=== PATIENT | female | born 1985 | race African-American/Black ===

== ENCOUNTER 2019-03-09 22:58 | Emergency (ER) | payer SELFPAY ==
[2019-03-09 23:41] LABS: Basophils # (Auto) 0.1 K/mm3 (0.0-0.1); Basophils % (Auto) 1.1 % (0.0-1.8); Eosinophils # (Auto) 0.6 K/mm3 (0.0-0.4); Eosinophils % (Auto) 7.9 % (0.0-4.3); Hematocrit 39.2 % (30.3-42.9); Hemoglobin 13.5 gm/dl (10.1-14.3); Lymphocytes # (Auto) 1.6 K/mm3 (1.2-5.4); Mean Corpuscular HGB Conc 34 % (30-34); Mean Corpuscular Volume 83 fl (79-97); Monocytes # (Auto) 0.3 K/mm3 (0.0-0.8); Monocytes % (Auto) 4.7 % (0.0-7.3); Platelet Count 175 K/mm3 (140-440); Red Blood Count 4.71 M/mm3 (3.65-5.03); Red Cell Distribution Width 13.7 % (13.2-15.2)
[2019-03-10 00:03] LABS: Alanine Aminotransferase 27 units/L (7-56); Albumin 4.4 g/dL (3.9-5); BUN/Creatinine Ratio 14; Blood Urea Nitrogen 7 mg/dL (7-17); Calcium 10.3 mg/dL (8.4-10.2); Hemolysis Index 14
[2019-03-10 02:08] LABS: Bacteria,Urine 1+ /HPF (Negative); Bilirubin,Urine NEG (Negative); Blood,Urine NEG (Negative); Color,Urine Yellow (Yellow); Mucus,Urine 1+ /HPF; Protein,Urine <15 mg/dL mg/dL (Negative); Urobilinogen,Urine < 2.0 mg/dL (<2.0)
[2019-03-10] MEDS ORDERED: ACETAMINOPHEN 325 MG TAB PO ONE (02:12)
[2019-03-10] MEDS ORDERED: ONDANSETRON 4 MG ODT TAB PO ONE (02:12)
--- NOTE | 2019-03-10 02:19 | Emergency Department Report ---
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 no fever or chills, pt also denies dysuria , frequency, urgency, or hematuria, symptoms are exacerbated by am awakening, and general resolve by midday , with occassional occurrence at night during HS. Pt is G5, P4, A0 including this . MD Complaint: abdominal pain Onset/Timin -: days(s) Location: LLQ, RLQ Radiation: LLQ, RLQ Severity: moderate Severity scale (0 -10): 3 Quality: cramping Consistency: intermittent Improves With: nothing Worsens With: nothing Associated Symptoms: nausea, vomiting. denies: dysuria, melena - Related Data LMP (females 10-50): 3 months Previous Rx's Medication Instructions Recorded Last Taken Type Acetaminophen [Acetaminophen TAB] 650 mg PO Q6HR PRN #30 tablet 03/10/19 Unknown Rx Ondansetron [Zofran Odt] 4 mg PO Q8HR PRN #21 tab.rapdis 03/10/19 Unknown Rx cephALEXin [Keflex] 500 mg PO BID 7 Days #14 cap 03/10/19 Unknown Rx Allergies Allergy/AdvReac Type Severity Reaction Status Date / Time No Known Allergies Allergy Unverified 03/09/19 23:14 ED Review of Systems Constitutional: denies: chills, fever Eyes: denies: eye pain, eye discharge, vision change ENT: denies: ear pain, throat pain Respiratory: denies: cough, shortness of breath, wheezing Cardiovascular: denies: chest pain, palpitations Endocrine: no symptoms reported Gastrointestinal: abdominal pain, nausea, vomiting. denies: diarrhea, constipation, melena Genitourinary: denies: urgency, dysuria, frequency, hematuria, discharge, dyspareunia Musculoskeletal: back pain Skin: denies: rash, lesions Neurological: denies: headache, weakness, paresthesias Psychiatric: denies: anxiety, depression Hematological/Lymphatic: denies: easy bleeding, easy bruising ED Past Medical Hx - Past Medical History Previous Medical History?: No - Surgical History Past Surgical History?: No - Social History Smoking Status: Never Smoker Substance Use Type: None - Medications Home Medications: Home Medications Medication Instructions Recorded Confirmed Last Taken Type Acetaminophen [Acetaminophen TAB] 650 mg PO Q6HR PRN #30 tablet 03/10/19 Unknown Rx Ondansetron [Zofran Odt] 4 mg PO Q8HR PRN #21 tab.rapdis 03/10/19 Unknown Rx cephALEXin [Keflex] 500 mg PO BID 7 Days #14 cap 03/10/19 Unknown Rx ED Physical Exam - General Limitations: Language Barrier General appearance: alert, in no apparent distress - Head Head exam: Present: atraumatic, normocephalic - Eye Eye exam: Present: normal appearance, PERRL, EOMI - ENT ENT exam: Present: mucous membranes moist - Neck Neck exam: Present: normal inspection - Respiratory Respiratory exam: Present: normal lung sounds bilaterally. Absent: respiratory distress, wheezes, stridor, chest wall tenderness - Cardiovascular Cardiovascular Exam: Present: regular rate, normal rhythm, normal heart sounds. Absent: systolic murmur, diastolic murmur, rubs, gallop - GI/Abdominal GI/Abdominal exam: Present: soft, tenderness (mild tenderness to bilat lower abd ), normal bowel sounds. Absent: distended, guarding, rebound, rigid, bruit, hernia - Rectal Rectal exam: Present: deferred - External exam: Present: other (pt defers ) - Extremities Exam Extremities exam: Present: normal inspection, full ROM. Absent: tenderness, pedal edema, calf tenderness - Back Exam Back exam: Present: normal inspection, full ROM. Absent: tenderness, CVA tenderness (R), CVA tenderness (L), vertebral tenderness - Neurological Exam Neurological exam: Present: alert, oriented X3 - Psychiatric Psychiatric exam: Present: normal affect, normal mood - Skin Skin exam: Present: warm, dry, intact, normal color. Absent: rash ED Medical Decision Making - Lab Data Result diagrams: 03/09/19 23:28 03/09/19 23:28 Labs 03/09/19 03/09/19 03/09/19 23:28 23:28 23:28 WBC 7.4 RBC 4.71 Hgb 13.5 Hct 39.2 MCV 83 MCH 29 MCHC 34 RDW 13.7 Plt Count 175 Lymph % (Auto) 22.0 [place] % (Auto) 4.7 Eos % (Auto) 7.9 H Baso % (Auto) 1.1 Lymph # 1.6 [place] # 0.3 Eos # 0.6 H Baso # 0.1 Seg Neutrophils % 64.3 Seg Neutrophils # 4.7 Sodium 134 L Potassium 3.8 Chloride 100.9 Carbon Dioxide 22 Anion Gap 15 BUN 7 Creatinine 0.5 L Estimated GFR > 60 BUN/Creatinine Ratio 14 Glucose 98 Calcium 10.3 H Total Bilirubin 0.30 AST 22 ALT 27 Alkaline Phosphatase 73 Total Protein 8.0 Albumin 4.4 Albumin/Globulin Ratio 1.2 HCG, Quant 11806 H Urine Color Urine Turbidity Urine pH Ur Specific [place] Urine Protein Urine Glucose (UA) Urine Ketones Urine Blood Urine Nitrite Urine Bilirubin Urine Urobilinogen Ur Leukocyte Esterase Urine WBC (Auto) Urine RBC (Auto) U Epithel Cells (Auto) Urine Bacteria (Auto) Urine Mucus 03/10/19 01:39 WBC RBC Hgb Hct MCV MCH MCHC RDW Plt Count Lymph % (Auto) [place] % (Auto) Eos % (Auto) Baso % (Auto) Lymph # [place] # Eos # Baso # Seg Neutrophils % Seg Neutrophils # Sodium Potassium Chloride Carbon Dioxide Anion Gap BUN Creatinine Estimated GFR BUN/Creatinine Ratio Glucose Calcium Total Bilirubin AST ALT Alkaline Phosphatase Total Protein Albumin Albumin/Globulin Ratio HCG, Quant Urine Color Yellow Urine Turbidity Cloudy Urine pH 5.0 Ur Specific [place] 1.023 Urine Protein <15 mg/dl Urine Glucose (UA) Neg Urine Ketones Tr Urine Blood Neg Urine Nitrite Neg Urine Bilirubin Neg Urine Urobilinogen < 2.0 Ur Leukocyte Esterase Sm Urine WBC (Auto) 5.0 Urine RBC (Auto) 3.0 U Epithel Cells (Auto) 18.0 H Urine Bacteria (Auto) 1+ Urine Mucus 1+ - Radiology Data Radiology results: report reviewed, image reviewed Single IUP 12 weeks, 3 days , FHR: 162 bpm, small inferior subchorionic hemorrhage, , small right ovarian cyst. - Medical Decision Making there is no vaginal bleeding or discharge, pt declines vaginal exam, deferrs to OBGYN. US OB: Single IUP 12 weeks, 3 days , FHR: 162 bpm, small inferior subchorionic hemorrhage, , small right ovarian cyst., ua: Trace leuk, wbc, rbc, bacteria some epithelial cells noted however given will treat with keflex, zofran, tyelnol, pt is currently a/o x 3 , tolerating po without n/v , pt will follow up with OBGYN in 1-2 days, Plevic Rest. Pt verbalized agreement and understanding of same. pt will be dc'd to home in stable condition at this time. ED Disposition Clinical Impression: Threatened miscarriage Abdominal pain during Qualifiers: Trimester: second trimester Qualified Code(s): O26.892 - Other specified related conditions, second trimester Disposition: DC-01 TO HOME OR SELFCARE Is pt being admited?: No Does the pt Need Aspirin: No Condition: Stable Instructions: Threatened Miscarriage (ED), (ED), Abdominal Pain (ED), Abdominal Pain in (ED) Additional Instructions: Pelvic rest ( no sex) until cleared by OBGYN Doctor. Prescriptions: Acetaminophen [Acetaminophen TAB] 650 mg PO Q6HR PRN #30 tablet PRN Reason: Pain cephALEXin [Keflex] 500 mg PO BID 7 Days #14 cap Ondansetron [Zofran Odt] 4 mg PO Q8HR PRN #21 tab.rapdis PRN Reason: Nausea And Vomiting Referrals: MARIANELA RAVI MD [Staff Physician] - 3-5 Days Forms: Work/School Release Form(ED) Print Language: KOSOVAN <CECELIA THOMAS - Last Filed: 03/10/19 05:36> ED Review of Systems ROS: Stated complaint: BACK AND ABD PAIN 12 WKS PREG Other details as noted in HPI ED Course Vital Signs 03/09/19 03/10/19 23:08 04:22 Temperature 97.7 F 97.1 F L Pulse Rate 81 79 Respiratory 18 16 Rate Blood Pressure 97/71 Blood Pressure 116/71 [Left] O2 Sat by Pulse 97 99 Oximetry ED Medical Decision Making - Lab Data Result diagrams: 03/09/19 23:28 03/09/19 23:28 Critical care attestation.: If time is entered above; I have spent that time in minutes in the direct care of this critically ill patient, excluding procedure time. ED Disposition Is pt being admited?: No Does the pt Need Aspirin: No
--- NOTE | 2019-03-10 03:06 | Ultrasound Report ---
ULTRASOUND OBSTETRIC INDICATION / CLINICAL INFORMATION: abd preg. Clinical Gestational Age (GA): 12 weeks 3 days TECHNIQUE: Transabdominal. COMPARISON: None available. FINDINGS: GESTATIONAL SAC: Well-defined oval shape and intrauterine in location. EMBRYO/FETUS: No significant abnormality. - [place]-Rump Length = 5.9 cm = 12 weeks, 3 day(s). - Heart Rate, beats per minute (if present) = 162 ADNEXA: No significant abnormality. Both ovaries are well visualized and grossly unremarkable. 1.3 cm corpus luteal cyst noted on the right. FREE FLUID: None. ADDITIONAL FINDINGS: Small hypoechoic fluid collection is seen along the inferior aspect of the gesta tional sac most likely representing small incidental subchorionic hemorrhage. Measurement is approxim ately 2.9 x 0.7 cm. IMPRESSION: 1. Single, living intrauterine with estimated sonographic age of 12 weeks, 3 day(s). 2. Small inferior subchorionic hemorrhage. Signer Name: Diandra Rich MD Signed: 03/10/2019 3:02 AM Workstation Name: [email or web address]
[2019-03-10 04:22] VITALS: BP 116/71
== END 2019-03-10 04:23 | disposition home or self-care (01) ==
LOC: ED 22:58
DX: O20.0 Threatened abortion (principal); Z79.899 Other long term (current) drug therapy; Z3A.12 12 weeks gestation of pregnancy
CPT/HCPCS: 36415; 76801; 80053; 81001; 84702; 85025; 86900; 86901; Q0162

== ENCOUNTER 2019-07-02 19:16 | Outpatient (CLI) | payer OTHER ==
[2019-07-02 20:06] LABS: Bacteria,Urine 1+ /HPF (Negative); Bilirubin,Urine NEG (Negative); Blood,Urine NEG (Negative); Color,Urine Yellow (Yellow); Mucus,Urine FEW /HPF; Protein,Urine <15 mg/dL mg/dL (Negative)
== END 2019-07-02 20:40 | disposition home or self-care (01) ==
LOC: TRG 19:16
PROVIDERS: ATTEND Obstetrics & Gynecology
DX: O26.892 Other specified pregnancy related conditions, second trimester (principal); R10.2 Pelvic and perineal pain; Z3A.28 28 weeks gestation of pregnancy
CPT/HCPCS: 81001

== ENCOUNTER 2019-09-22 12:08 | Inpatient (IN) | payer MEDICAID ==
[2019-09-22] MEDS: LACTATED RINGERS 1,000 ML IV SCH (13:38)
[2019-09-22 14:10] LABS: Basophils % (Auto) 0.7 % (0.0-1.8); Eosinophils # (Auto) 0.5 K/mm3 (0.0-0.4); Eosinophils % (Auto) 7.4 % (0.0-4.3); Hematocrit 34.9 % (30.3-42.9); Hemoglobin 11.8 gm/dl (10.1-14.3); Lymphocytes # (Auto) 1.6 K/mm3 (1.2-5.4); Lymphocytes % (Auto) 23.1 % (13.4-35.0); Mean Corpuscular HGB Conc 34 % (30-34); Mean Corpuscular Volume 81 fl (79-97); Monocytes # (Auto) 0.4 K/mm3 (0.0-0.8); Monocytes % (Auto) 5.5 % (0.0-7.3); Platelet Count 163 K/mm3 (140-440); Red Blood Count 4.34 M/mm3 (3.65-5.03); Red Cell Distribution Width 15.8 % (13.2-15.2)
--- NOTE | 2019-09-22 16:17 | Ultrasound Report ---
ULTRASOUND OBSTETRIC INDICATION / CLINICAL INFORMATION: Absence of movement. Clinical Gestational Age (GA): 40 weeks 4 days TECHNIQUE: Transabdominal. COMPARISON: Pelvic ultrasound 03/10/2019 FINDINGS: There is a single intrauterine . BREATHING MOVEMENT = 2 GROSS BODY MOVEMENT = 2 TONE = 2 QUALITATIVE AMNIOTIC FLUID VOLUME = 2 TOTAL BIOPHYSICAL SCORE = 8/8 heart rate 140 bpm. SUKHDEV 6.4 cm, borderline low. Cervical length 5.5 cm. IMPRESSION: 1. Single, living intrauterine . 2. Borderline low amniotic fluid index. Signer Name: Jus Perkins MD Signed: 09/22/2019 4:13 PM Workstation Name: [id number]
[2019-09-22] MEDS ORDERED: AMPICILLIN/NS 2 GM/100 ML 2 GM/100 ML BAG IV ONE (16:29)
[2019-09-22] MEDS ORDERED: DINOPROSTONE 10 MG VAG SUPP VG ONE (16:29)
[2019-09-22] MEDS ORDERED: MINERAL OIL 30 ML ORAL LIQD PO PRN (16:29)
[2019-09-22] MEDS ORDERED: TERBUTALINE 1 MG/1 ML INJ IVP PRN (16:29)
[2019-09-22] MEDS ORDERED: TERBUTALINE 1 MG/1 ML INJ SUB-Q PRN (16:29)
[2019-09-22] MEDS ORDERED: fentaNYL 100 MCG/2 ML INJ IV PRN (16:29)
[2019-09-22] MEDS ORDERED: LIDOCAINE (2%) 20 MG/1 ML VIAL 20 ML MDV INFILTRATI ONE (16:29)
[2019-09-22] MEDS ORDERED: BUTORPHANOL 2 MG/1 ML INJ IV PRN ×2 (16:29)
[2019-09-22] MEDS ORDERED: ePHEDrine SULFATE 50 MG/1 ML INJ IV PRN (16:29)
[2019-09-22] MEDS ORDERED: OXYTOCIN 20 UNIT/1000ML DRIP 20 UNITS/1,000 ML BAG IV SCH (17:00)
[2019-09-22] MEDS ORDERED: LACTATED RINGERS 1,000 ML IV SCH (17:00)
[2019-09-22 17:29] LABS: Bacteria,Urine 2+ /HPF (Negative); Bilirubin,Urine NEG (Negative); Blood,Urine NEG (Negative); Color,Urine Yellow (Yellow); Mucus,Urine FEW /HPF; Protein,Urine <15 mg/dL mg/dL (Negative); Urobilinogen,Urine < 2.0 mg/dL (<2.0)
[2019-09-22] MEDS ORDERED: OXYTOCIN DRIP 30 UNITS/500 ML BAG IV SCH (19:00)
[2019-09-23] MEDS: LACTATED RINGERS 1,000 ML IV SCH ×2 (03:34→16:23)
[2019-09-23] MEDS: AMPICILLIN/NS 1 GM/50 ML 1 GM/50 ML BAG IV SCH ×4 (03:34→18:44)
--- NOTE | 2019-09-23 08:31 | History and Physical Report ---
History of Present Illness Date of examination: 09/23/19 Date of admission: 09/22/19 16:44 Chief complaint: oligohydramnios History of present illness: This is a 33 yo at 41 weeks here for decreased movement and noted during eval to have oligo. She had no care. Past History Past Medical History: no pertinent history Past Surgical History: no surgical history Social history: no significant social history, . denies: smoking, alcohol abuse, prescription drug abuse - Obstetrical History Expected Date of Delivery: 09/17/19 Actual Gestation: 40 Week(s) 6 Day(s) : 5 Para: 4 Hx # Term Pregnancies: 4 Number of Pregnancies: 0 Spontaneous Abortions: 0 Induced : 0 Number of Living Children: 4 Medications and Allergies Allergies Allergy/AdvReac Type Severity Reaction Status Date / Time No Known Allergies Allergy Unverified 03/09/19 23:14 Home Medications Medication Instructions Recorded Confirmed Last Taken Type Vit-Fe Fumar-FA [ 1 tab PO QDAY 09/22/19 09/22/19 09/22/19 08:00 History Vitamin] Active Meds: Active Medications Butorphanol Tartrate (Stadol) 1 mg IV Q2H PRN PRN Reason: Pain, Moderate(4-6) LABOR PAIN Butorphanol Tartrate (Stadol) 2 mg IV Q2H PRN PRN Reason: Pain , Severe (7-10) Last Admin: 09/23/19 03:30 Dose: 2 mg Documented by: Ephedrine Sulfate (Ephedrine Sulfate) 10 mg IV Q2M PRN PRN Reason: Hypotension Fentanyl (Sublimaze) 100 mcg IV Q2H PRN PRN Reason: Pain,Severe (7-10) LABOR PAIN Lactated Ringer's (Lactated Ringers) 1,000 mls @ 150 mls/hr IV DIRECT ADONIS Last Admin: 09/23/19 03:34 Dose: 150 mls/hr Documented by: Ampicillin Sodium (Ampicillin/Ns 1 Gm/50 Ml) 1 gm in 50 mls @ 100 mls/hr IV Q4H R ADONIS; Protocol Last Admin: 09/23/19 03:34 Dose: 100 mls/hr Documented by: Lactated Ringer's (Lactated Ringers) 1,000 mls @ 125 mls/hr IV DIRECT ADONIS Last Admin: 09/22/19 18:29 Dose: 125 mls/hr Documented by: Oxytocin/Sodium Chloride (Pitocin/Ns 20 Unit/1000ml Drip) 20 units in 1,000 mls @ 125 mls/hr IV DIRECT ADONIS Oxytocin/Sodium Chloride (Pitocin/Ns 30 Unit/500ml) 30 units in 500 mls @ 2 mls/hr IV TITR ADONIS; Protocol Last Titration: 09/23/19 06:45 Dose: 4 mls/hr Documented by: Mineral Oil (Mineral Oil) 30 ml PO QHS PRN PRN Reason: Constipation Terbutaline Sulfate (Brethine) 0.25 mg SUB-Q ONCE PRN PRN Reason: Hyperstimulation/Hypertonicity Terbutaline Sulfate (Brethine) 0.25 mg IVP ONCE PRN PRN Reason: Hyperstimulation/Hypertonicity Review of Systems All systems: negative - Vital Signs Vital signs: Vital Signs Pulse Pulse Ox 83 97 09/22/19 12:26 09/22/19 12:26 Temp Pulse Resp BP Pulse Ox 98.6 F 66 16 132/67 100 09/23/19 03:15 09/23/19 08:19 09/23/19 03:30 09/23/19 07:24 09/23/19 08:19 - Physical Exam Breasts: Positive: normal Cardiovascular: Regular rate, Normal S1 Lungs: Positive: Clear to auscultation, Normal air movement Abdomen: Positive: normal appearance, soft, normal bowel sounds. Negative: distention, tenderness, guarding Genitourinary (Female): Positive: normal external genitalia, normal perenium Vagina: Positive: normal moisture Uterus: Positive: normal size Anus/Rectum: Positive: normal perianal skin Deep Tendon Reflex Grade: Normal +2 - Obstetrical FHR: category 1 Cervical Dilatation: 3 Cervical Effacement Percentage: 60 station: -2 Uterine Contraction Pattern: Regular Uterine Tone Measurement Phase: Contraction Uterine Contraction Intensity: Moderate Results Result Diagrams: 09/22/19 13:50 Abnormal lab results 09/22/19 Range/Units 13:50 MCH 27 L (28-32) pg RDW 15.8 H (13.2-15.2) % Eos % (Auto) 7.4 H (0.0-4.3) % Eos # 0.5 H (0.0-0.4) K/mm3 All other labs normal. Assessment and Plan A/P IUP 40+6 weeks Oligo no care GBS unknown s/p pitocin will change to cervidil as cervix non favorable and will ripen close monitor of and maternal
[2019-09-23] MEDS ORDERED: DINOPROSTONE 10 MG VAG SUPP VG ONE ×2 (10:00→21:46)
[2019-09-24] MEDS ORDERED: ceFAZolin/Water 2 GM/20 ML 2 GM/20 ML SYRINGE IV ONE (01:01)
[2019-09-24] MEDS ORDERED: BICITRA ORAL LIQD 30ML ONE (01:01)
[2019-09-24] MEDS ORDERED: FAMOTIDINE 20 MG/2 ML INJ IV ONE ×2 (01:01→01:34)
[2019-09-24] MEDS ORDERED: METOCLOPRAMIDE 10 MG/2 ML INJ ONE (01:01)
[2019-09-24] MEDS: LACTATED RINGERS 1,000 ML IV SCH (01:30)
--- NOTE | 2019-09-24 01:30 | Event Note ---
Date: 09/24/19 I was contacted by nurse conscerning cat 2 strip with decels late in character. I discussed with [place]i interprter that this baby is recommended to deliver by csec secondary to nrfht, failed IOL. Patient was given r/b/a which include but not limited to bleeding infection, damage to pelvic and non pelvic organs risk of hysterectomy and .
[2019-09-24] MEDS ORDERED: METOCLOPRAMIDE 10 MG/2 ML INJ IV ONE (01:34)
[2019-09-24] MEDS ORDERED: BICITRA ORAL LIQD 30ML PO ONE (01:34)
--- NOTE | 2019-09-24 01:36 | Anesthesia Day of Surgery ---
Anesthesia Day of Surgery - Day of Surgery Patient Examined: Yes Patient H&P Reviewed: Yes Patient is NPO: Yes Beta Blockers: No Cardiac Clearance: No Pulmonary Clearance: No Hamilton's Test: N/A
--- NOTE | 2019-09-24 01:37 | Anesthesia Consultation ---
Anesthesia Consult and Med Hx Date of service: 09/24/19 - Airway Anesthetic Teeth Evaluation: Poor ROM Head & Neck: Adequate Mental/Hyoid Distance: Adequate Mallampati Class: Class III Intubation Access Assessment: Probably Good - Pulmonary Exam CTA: Yes - Cardiac Exam Cardiac Exam: RRR - Pre-Operative Health Status ASA Pre-Surgery Classification: ASA3 Proposed Anesthetic Plan: Spinal - Pulmonary Hx Smoking: No Hx Asthma: No Hx Respiratory Symptoms: No SOB: No COPD: No Home Oxygen Therapy: No Hx Pneumonia: No Hx Sleep Apnea: No - Cardiovascular System Hx Hypertension: No Hx Coronary Artery Disease: No Hx Heart Attack/AMI: No Hx Angina: No Hx Percutaneous Transluminal Coronary Angioplasty (PTCA): No Hx Cardia Arrhythmia: No Hx Pacemaker: No Hx Internal Defibrillator: No Hx Valvular Heart Disease: No Hx Heart Murmur: No Hx Peripheral Vascular Disease: No - Central Nervous System Hx Neuromuscular Disorder: No Hx Seizures: No CVA: No Hx Back Pain: Yes Hx Psychiatric Problems: No - Gastrointestinal Hx Ulcer: No Hx Gastroesophageal Reflux Disease: Yes - Endocrine Hx Renal Disease: No Hx End Stage Renal Disease: No Hx Cirrhosis: No Hx Liver Disease: No Hx Insulin Dependent Diabetes: No Hx Non-Insulin Dependent Diabetes: No Hx Thyroid Disease: No Hx Hypothyroidism: No Hx Hyperthyroidism: No - Hematic Hx Anemia: No Hx Sickle Cell Disease: No - Other Systems Hx Alcohol Use: No Hx Substance Use: No Hx Cancer: No Hx Obesity: Yes
[2019-09-24] MEDS ORDERED: WATER FOR IRRIG STERILE 1,500 ML BOTTLE IR ONE (01:58)
[2019-09-24] MEDS ORDERED: ONDANSETRON 4 MG/2 ML INJ ONE (01:58)
[2019-09-24] MEDS ORDERED: SODIUM CHLORIDE 0.9% IRR 1,500 ML BOTTLE IR ONE (01:58)
[2019-09-24] MEDS ORDERED: DEXMEDETOMIDINE 200 MCG/2 ML VIAL IV ONE (01:58)
[2019-09-24] MEDS ORDERED: OXYTOCIN 20 UNIT/1000ML DRIP 20 UNITS/1,000 ML BAG IV SCH ×2 (02:00→03:00)
[2019-09-24] MEDS ORDERED: LACTATED RINGERS 1,000 ML IV SCH (02:00)
[2019-09-24] MEDS ORDERED: ceFAZolin/Water 2 GM/20 ML 2 GM/20 ML SYRINGE IV NR (02:00)
[2019-09-24] MEDS ORDERED: PHENYLEPHRINE/NS 1,000 MCG/10 ML SYRINGE (OR USE) IV ONE ×2 (02:02→02:36)
[2019-09-24] MEDS ORDERED: METHYLERGONOVINE MALEATE 0.2 MG/ML VIAL IM ONE (02:17)
[2019-09-24] MEDS ORDERED: OXYTOCIN 10 UNIT/1 ML INJ ONE (02:19)
--- NOTE | 2019-09-24 02:48 | Procedure Note ---
OB Delivery Note - Delivery Date of Delivery: 09/24/19 Surgeon: FLOR ADORNO Estimated blood loss: other (800cc) - Section Preop diagnosis: nonreassuring FHR tracing, other (failed IOL) Postop diagnosis: other (tight nuchal cord) section procedure: section Disposition: PACU Complications: none Narrative: see op note - A at 1 minute: 8 at 5 minutes: 9 Gender: Female (7 pounds 0 oz)
[2019-09-24] MEDS ORDERED: NALOXONE 0.4 MG/1 ML INJ IV PRN ×2 (02:51→04:00)
[2019-09-24] MEDS ORDERED: ACETAMINOPHEN 325 MG TAB PO PRN (02:51)
[2019-09-24] MEDS ORDERED: LANOLIN/ZINC/DIMETHICONE (LANSINOH) 7 GM TP PRN (02:51)
[2019-09-24] MEDS ORDERED: WITCH HAZEL/ GLYCERIN PAD TP PRN (02:51)
[2019-09-24] MEDS ORDERED: SIMETHICONE 80 MG CHEW TAB PO PRN (02:51)
[2019-09-24] MEDS ORDERED: HYDROcodone/ACETAMINOPHEN 5-325 MG TAB PO PRN (02:51)
[2019-09-24] MEDS ORDERED: KETOROLAC 30 MG/1 ML INJ IV PRN (02:51)
[2019-09-24] MEDS ORDERED: MORPHINE 2 MG/1 ML INJ IV PRN (02:51)
[2019-09-24] MEDS ORDERED: MAGNESIUM HYDROXIDE (MOM) ORAL LIQD UDC PO PRN (02:51)
[2019-09-24] MEDS ORDERED: PROMETHAZINE 25 MG RECT SUPP PR PRN (02:51)
[2019-09-24] MEDS ORDERED: ONDANSETRON 4 MG/2 ML INJ IV PRN ×2 (02:51→04:00)
--- NOTE | 2019-09-24 02:51 | Operative Report ---
Operative Report Operative Report: Date of procedure: September 24, 2019 Preoperative diagnosis: 1) IUP at 41weeks 2) NRFHT late decels Postoperative diagnosis: Same + nuichal cord tight Procedure: Primary low transverse section Surgeon: Kayleigh Juarez MD Anesthesia: Regional Findings: 1) Viable female , Apgars 8 and 9, weight 7 pounds 0 oz cephalic presentation. 2) Normal-appearing uterus ovaries and tubes Estimated blood loss: 800 mL IV fluids: 500 mL Urine output: 300 mL, clear at the end of the procedure Drains: Beltran to gravity Specimens: None Complications:None. Counts correct x 3 Disposition: Stable to PACU Indication for procedure: Pt is a 33 year old at 41 weeks was admitted for IOL for nrfht and oligo. She had recurrent decels and proceeded with primary cesec. Operation in detail: After the risks, benefits, alternatives and complications were explained to the patient she gave informed consent for the procedure. She was subsequently taken to the operating room where regional anesthesia was noted to be adequate. She was subsequently placed in the dorsal supine position with leftward tilt and prepped and draped in a normal sterile fashion. heart tones were noted prior to incision. A timeout was performed. A Pfannenstiel skin incision was made with the knife and carried down to the layer of the fascia with the Bovie. The fascia was incised in the midline and the fascial incision was extended bilaterally with the Bovie. The fascial incision was then stretched. The rectus muscles were then in the midline and partially transected for adequate visualization. The peritoneum was then entered bluntly. The peritoneal incision was extended with good visualization of the bladder. The peritoneal incision was then stretched. The bladder blade was then placed. A transverse incision was made in the lower uterine segment with a knife and extended bilaterally with the bandage scissors. Amniotomy was performed with egress of meconium fluid. head delivered with ease, followed by shoulders and body. bulb suctioned at delivery. Cord clamped and cut. handed to NICU staff in attendance. Cord blood was collected. The placenta was then delivered manually. The uterus was then exteriorized and cleared of all clots and debris. The hysterotomy was then reapproximated with 0 Vicryl in a running locked fashion. A second layer of the same suture was used in imbricating fashion. The hysterotomy was inspected and hemostasis was noted. The gutters were irrigated and cleared of all clots and debris. The hysterotomy was again inspected and noted to be hemostatic. Surgicel was placed over the hysterotomy. The uterus was placed back in the peritoneal cavity. The peritoneum was reapproximated with 2-0 Vicryl in a running fashion incorporating the rectus muscles. Surgicel was placed over the rectus muscles. The fascia was reapproximated with 0 Vicryl in a running fashion. The subcutaneous tissue was reapproximated with 3-0 Vicryl in a running fashion. The skin was reapproximated with 4-0 Vicryl in a subcuticular fashion. The incision was then covered with steri strips and a pressure dressing. The procedure was then ended. The patient tolerated the procedure well and was taken to the PACU in stable condition. All instrument, lap, and needle counts were correct 3.
[2019-09-24] MEDS ORDERED: D5W/LACTATED RINGERS 1,000 ML IV SCH (03:00)
[2019-09-24] MEDS ORDERED: miSOPROStol 200 MCG TAB PR ONE (04:00)
[2019-09-24] MEDS ORDERED: HYDROmorphone 1 MG/1 ML INJ IV PRN (04:00)
--- NOTE | 2019-09-24 04:02 | Post Anesthesia Evaluation ---
- Post Anesthesia Evaluation Patient Participated: Yes Airway Patent: Yes Stable Respiratory Function: Yes Nausea/Vomiting: No Temp > 96.8F: Yes Pain Manageable: Yes Adequeate Hydration: Yes Anesthesia Complications: No Block Receding Appropriately: Yes Patient on Ventilator: No
[2019-09-24] MEDS ORDERED: miSOPROStol 200 MCG TAB ONE (04:14)
[2019-09-24] MEDS: KETOROLAC 30 MG/1 ML INJ IV PRN ×3 (06:22→17:47)
[2019-09-24] MEDS: PRENATAL VIT27-FE FUMARATE-FOLIC ACID VIT TAB PO SCH (10:21)
[2019-09-24] MEDS: FERROUS SULFATE 325 MG TAB PO SCH (10:21)
[2019-09-24 15:24] LABS: Hematocrit 27.7 % (30.3-42.9); Hemoglobin 9.3 gm/dl (10.1-14.3)
[2019-09-24] MEDS: oxyCODONE /ACETAMINOPHEN 5-325MG TAB PO PRN (20:58)
[2019-09-25] MEDS ORDERED: DIPHtheria,PERTUSSIS(ACELL),TETANUS VACCINE/PF 0.5 ML VIAL IM ONE (02:00)
[2019-09-25] MEDS ORDERED: MEASLES, MUMPS & RUBELLA 12,500 UNIT/0.5 ML VACCINE SUB-Q ONE (02:52)
[2019-09-25] MEDS: IBUPROFEN 800 MG TAB PO PRN ×2 (06:00→20:11)
--- NOTE | 2019-09-25 08:12 | Progress Note ---
Assessment and Plan - Patient Problems (1) delivery delivered Current Visit: Yes Status: Acute Plan to address problem: Patient doing well routine postoperative care Subjective - Subjective Date of service: 09/25/19 Interval history: The patient reports mild incisional pain. She is currently tolerating a clear diet. She denies any nausea vomiting. Patient reports: appetite normal : doing well Objective - Vital Signs Latest vital signs: Vital Signs Temp Pulse Resp BP BP Pulse Ox 09/25/19 01:12 98.2 F 68 18 101/42 99 09/24/19 20:31 97.8 F 71 17 102/44 96 09/24/19 20:30 97.8 F 71 17 102/44 96 09/24/19 16:46 97.6 F 70 14 95/39 97 Intake and Output 09/24/19 09/25/19 09/25/19 22:59 06:59 14:59 Output Total 201 300 Balance -201 -300 Output: Urine 201 300 Void 201 300 Other: Total, Output Amount 200 300 Voiding Method Toilet # Voids Void 1 - Exam Abdomen: Present: normal appearance, soft Incision: Present: dressed - Labs Labs: Abnormal lab results 09/24/19 Range/Units 14:33 Hgb 9.3 L (10.1-14.3) gm/dl Hct 27.7 L D (30.3-42.9) %
[2019-09-25] MEDS: FERROUS SULFATE 325 MG TAB PO SCH (09:44)
[2019-09-25] MEDS: PRENATAL VIT27-FE FUMARATE-FOLIC ACID VIT TAB PO SCH (09:44)
[2019-09-25] MEDS: oxyCODONE /ACETAMINOPHEN 5-325MG TAB PO PRN (09:44)
[2019-09-25] MEDS ORDERED: FLU VACC QUAD 2019-20 (3 YR UP)/PF 60 MCG/0.5 ML SYRINGE IM ONE (12:00)
--- NOTE | 2019-09-26 07:50 | Progress Note ---
Assessment and Plan A: POD2 s/p pLTCS Vital signs stable Acute anemia due to blood loss P: Routine pp care Reviewed education and nipple care Ferrous sulfate supplementation Anticipate d/c to home on POD3 Subjective - Subjective Date of service: 09/26/19 Principal diagnosis: s/p pLTCS Interval history: POD2 s/p primary LTCS Patient reports: appetite normal, voiding normally, pain well controlled, fla tus, ambulating normally, other (nipples are sore) : doing well, nursing well, bottle feeding Objective - Vital Signs Latest vital signs: Vital Signs Temp Pulse Resp BP Pulse Ox 09/26/19 00:00 98.6 F 64 16 101/61 09/25/19 20:11 18 09/25/19 16:40 96.9 F L 72 16 100/51 98 Intake and Output 09/25/19 09/25/19 09/26/19 15:59 23:59 07:59 Intake Total 1600 2200 300 Balance 1600 2200 300 Intake: Oral 1600 2200 Intake, Free Water 300 Other: Total, Intake Amount 800 200 Voiding Method Toilet Toilet # Voids 1 1 Void 1 1 1 - Exam Lungs: Present: Normal air movement Abdomen: Present: soft. Absent: distention Uterus: Present: firm, fundal height below umbilicus. Absent: bogginess Extremities: Present: normal Incision: Present: dressed
[2019-09-26] MEDS: PRENATAL VIT27-FE FUMARATE-FOLIC ACID VIT TAB PO SCH (09:56)
[2019-09-26] MEDS: FERROUS SULFATE 325 MG TAB PO SCH (09:56)
[2019-09-26] MEDS: oxyCODONE /ACETAMINOPHEN 5-325MG TAB PO PRN ×2 (17:50→22:33)
[2019-09-26] MEDS: IBUPROFEN 800 MG TAB PO PRN (20:02)
--- NOTE | 2019-09-27 08:25 | Progress Note ---
Assessment and Plan A: POD3 s/p pLTCS Vital signs stable Acute anemia due to blood loss P: Routine pp care Reviewed breast feeding education and nipple care Ferrous sulfate supplementation D/c to home today Subjective - Subjective Date of service: 09/27/19 Principal diagnosis: s/p pLTCS Interval history: POD3 s/p primary LTCS Patient reports: appetite normal, voiding normally, pain well controlled, flatus, ambulating normally : doing well, nursing well, bottle feeding Objective - Vital Signs Latest vital signs: Vital Signs Temp Pulse Resp BP BP Pulse Ox 09/27/19 00:30 98.3 F 74 18 105/58 99 09/26/19 16:41 98.4 F 73 18 110/63 96 Intake and Output 09/26/19 09/27/19 09/27/19 23:59 07:59 15:59 Intake Total 1080 360 Balance 1080 360 Intake: Oral 720 360 Intake, Free Water 360 Other: Total, Intake Amount 240 240 # Voids Void 1 1 - Exam Breasts: Present: normal, Lungs: Present: Normal air movement Abdomen: Present: soft, normal bowel sounds. Absent: distention Uterus: Present: firm, fundal height below umbilicus. Absent: bogginess Extremities: Present: normal Incision: Present: normal, dry, intact
--- NOTE | 2019-09-27 08:26 | Discharge Summary ---
Providers - Providers Date of Admission: 09/22/19 16:44 Date of discharge: 09/27/19 Attending physician: FLOR ADORNO MD 09/24/19 16:03 Consult to Case Management [CONS] Routine Services Needed at Discharge: Aircraft [employer]er Notified:: case management Additional Physician Instructions: no care Primary care physician: PHYSICS TUTOR Hospitalization Reason for admission: induction of labor, IUP at term Delivery: Procedure: primary low transverse Episiotomy: none Laceration: none Incision: normal, dry, intact Other procedures: none complications: none Discharge diagnosis: IUP at term delivered Hospital course: Pt arrived as a walk-in pt with no care at 41 weeks EGA, reporting no f etal movement. She was noted to have oligohydramnios and was admitted for induction of labor. She was noted to have non-reassuring FHT and underwent a primary LTCS. course was uncomplicated. Condition at discharge: Good Disposition: DC-01 TO HOME OR SELFCARE Plan - Discharge Medications Prescriptions: Ibuprofen [Motrin] 800 mg PO Q8HR PRN #60 tablet PRN Reason: Pain, Mild (1-3) oxyCODONE /ACETAMINOPHEN [Percocet 5/325] 1 tab PO Q6HR PRN #30 tablet PRN Reason: Pain - Provider Discharge Summary Activity: routine, no sex for 6 weeks, no heavy lifting 4 weeks, no strenuous exercise Diet: routine Instructions: routine Additional instructions: [] Smoking cessation referral if applicable(refer to patient education folder for contact #) [] Refer to [facility] Booklet Call your doctor immediately for: * Fever > 100.5 * Heavy vaginal bleeding ( >1 pad per hour) * Severe persistent headache * Shortness of breath * Reddened, hot, painful area to leg or breast * Drainage or odor from incision. * Keep incision clean and dry at all times and follow doctor's instructions regarding bathing/showering - Follow up plan Follow up: JERAD VÁSQUEZ MD [Staff Physician] - 14 Days (Please call [employer] emerging technologies director to schedule appointment.) Forms: [facility] Discharge Summary
[2019-09-27] MEDS: oxyCODONE /ACETAMINOPHEN 5-325MG TAB PO PRN (08:57)
[2019-09-27 10:25] VITALS: BP 122/78
[2019-09-27] MEDS: PRENATAL VIT27-FE FUMARATE-FOLIC ACID VIT TAB PO SCH (10:34)
[2019-09-27] MEDS: FERROUS SULFATE 325 MG TAB PO SCH (10:34)
[2019-09-27] MEDS ORDERED: MEASLES, MUMPS & RUBELLA 12,500 UNIT/0.5 ML VACCINE SUB-Q ONE (11:49)
[2019-09-27] MEDS: IBUPROFEN 800 MG TAB PO PRN (12:05)
== END 2019-09-27 13:22 | disposition home or self-care (01) | DRG 787 ==
LOC: TRG 12:08 → APU 12:17 → LD 16:44 → TRG 16:44 → OB 09-24 04:35
PROVIDERS: ADMIT Obstetrics & Gynecology; ATTEND Obstetrics & Gynecology
PROC: 10D00Z1 Extraction of Products of Conception, Low, Open Approach (ICD-10-PCS; principal; 2019-09-24)
PROC: 3E0234Z Introduction of Serum, Toxoid and Vaccine into Muscle, Percutaneous Approach (ICD-10-PCS; 2019-09-25)
PROC: 3E0134Z Introduction of Serum, Toxoid and Vaccine into Subcutaneous Tissue, Percutaneous Approach (ICD-10-PCS; 2019-09-25)
DX: O41.03X0 Oligohydramnios, third trimester, not applicable or unspecified (principal); D62 Acute posthemorrhagic anemia; O99.214 Obesity complicating childbirth; E66.9 Obesity, unspecified; O99.62 Diseases of the digestive system complicating childbirth; O76 Abnormality in fetal heart rate and rhythm complicating labor and delivery; O90.81 Anemia of the puerperium; O69.1XX0 Labor and delivery complicated by cord around neck, with compression, not applicable or unspecified; O61.9 Failed induction of labor, unspecified; K21.9 Gastro-esophageal reflux disease without esophagitis; Z3A.41 41 weeks gestation of pregnancy; Z37.0 Single live birth; Z23 Encounter for immunization
CPT/HCPCS: 36415; 76819; 81001; 85014; 85018; 85025; 86592; 86706; 86762; 86850; 86900; 86901; 87806; 88307; 90471; 90686; 90707; 90715; G0378; J0290; J0595; J0690; J1885; J2210; J2370; J2405; J2590; J2765; J3490; J7120; J7121

== ENCOUNTER 2020-09-24 12:46 | Emergency (ER) | payer MEDICAID | END 2020-09-24 12:51 | disposition left against medical advice (07) | LOC: ED 12:46 | DX: O20.8 Other hemorrhage in early pregnancy (principal); Z3A.00 Weeks of gestation of pregnancy not specified; Z53.21 Procedure and treatment not carried out due to patient leaving prior to being seen by health care provider ==